=== PATIENT | male | born 1945 | race Caucasian/White ===

== ENCOUNTER 2019-04-16 06:37 | Inpatient (IN) ==
[2019-04-09 12:12] LABS: Appearance,Urine CLEAR; Bilirubin,Urine NEG (NEG); Color,Urine STRAW; Glucose,Urine (UA) NEGATIVE (NEG); Ketones,Urine NEG (NEG); Leukocyte Esterase,Urine NEG /uL (NEG); Nitrate,Urine NEG (NEG); Protein,Urine NEG (NEG); Specific Gravity,Urine 1.006 (1.000-1.035); Urine Blood NEG mg/dL (<0.03); Urobilinogen,Urine NEG (NEG)
[2019-04-09 12:13] LABS: Basophils # (Auto) 0.1 K/mcL (0.0-0.3); Basophils % (Auto) 1.2 % (0.0-2.0); Eosinophils # (Auto) 0.1 K/mcL (0.0-0.7); Eosinophils % (Auto) 1.6 % (0.0-7.0); Granulocytes % (Auto) 66.7 % (38.0-78.0); Hematocrit 42.7 % (41.0-55.0); Hemoglobin 14.4 g/dL (13.5-16.5); Lymphocytes # (Auto) 1.1 K/mcL (1.5-4.8); Lymphocytes % (Auto) 19.7 % (15.5-49.0); Mean Cell Volume 91.1 fL (80.0-100.0); Mean Corpuscular HGB Conc 33.6 g/dL (31.0-36.0); Mean Platelet Volume 7.9 fL (7.4-10.4); Monocytes # (Auto) 0.6 K/mcL (0.1-0.9); Monocytes % (Auto) 10.8 % (1.0-12.0); Platelet Count 276 K/mcL (140-440); RBC 4.69 M/mcL (4.50-5.90); Red Cell Distribution Width 14.6 % (11.5-14.5); WBC 5.8 K/mcL (4.5-11.0)
[2019-04-09 14:54] LABS: Blood Urea Nitrogen 14 mg/dl (8-23); Calcium 9.2 mg/dl (8.6-10.4); Carbon Dioxide 24 mmol/L (22-30); Chloride 102 mmol/L (96-108); Glomerular Filtration Rate 87; Glucose 98 mg/dL (70-105)
[2019-04-09 15:05] LABS: Estimated Average Glucose(eAG) 105 mg/dL; Hemoglobin A1C 5.3 % HGB (4.0-6.0)
[~2019-04-16 06:37] MED LIST: CELECOXIB 200 MG CAPSULE PO SCH; PREGABALIN 75 MG CAPSULE PO SCH; ceFAZolin 2 GM in DEXTROSE 5% IN WATER 50 ML IV SCH; oxyCODONE 10 MG TAB.ER.12H PO SCH
[2019-04-16] MEDS ORDERED: IPRATROPIUM/ALBUTEROL 3 ML AMPUL.NEB NEB PRN ×2 (07:00→11:55)
[2019-04-16] MEDS ORDERED: SCOPOLAMINE 1 PATCH PATCH TOPICAL PRN (07:00)
[2019-04-16] MEDS ORDERED: LIDOCAINE HCL/PF 100 MG/5 ML SYRINGE IV ONE (11:11)
[2019-04-16] MEDS ORDERED: MIDAZOLAM 5 MG/5 ML VIAL IV ONE (11:11)
[2019-04-16] MEDS ORDERED: ONDANSETRON 4 MG/2 ML VIAL IV ONE (11:11)
[2019-04-16] MEDS ORDERED: GLYCOPYRROLATE 0.2 MG/ML VIAL IV ONE (11:11)
[2019-04-16] MEDS ORDERED: PROPOFOL 200 MG/20 ML VIAL IV ONE (11:11)
[2019-04-16] MEDS ORDERED: DEXAMETHASONE 10 MG/ML VIAL IV ONE (11:11)
[2019-04-16] MEDS ORDERED: TRANEXAMIC ACID 1,000 MG/10 ML VIAL IV ONE (11:11)
[2019-04-16] MEDS ORDERED: METOPROLOL TARTRATE 5 MG/5 ML VIAL IV PRN (11:55)
[2019-04-16] MEDS ORDERED: diphenhydrAMINE 50 MG/ML VIAL IV PRN (11:55)
[2019-04-16] MEDS ORDERED: ACETAMINOPHEN 1,000 MG/100 ML BOTTLE IV ONE (11:55)
[2019-04-16] MEDS ORDERED: ONDANSETRON 4 MG/2 ML VIAL IV PRN ×2 (11:55→12:54)
[2019-04-16] MEDS ORDERED: HYDROmorphone 2 MG/ML VIAL IV PRN (11:55)
[2019-04-16] MEDS ORDERED: METHOCARBAMOL 1,000 MG/10 ML VIAL IV PRN (11:55)
[2019-04-16] MEDS ORDERED: fentaNYL 100 MCG/2 ML VIAL IV PRN (11:55)
[2019-04-16] MEDS ORDERED: ePHEDrine 50 MG/ML AMPUL IV PRN (11:55)
[2019-04-16] MEDS ORDERED: ATROPINE SULFATE 0.4 MG/ML VIAL IV PRN (11:55)
[2019-04-16] MEDS ORDERED: NALOXONE HCL 0.4 MG/ML VIAL IV PRN (11:55)
[2019-04-16] MEDS ORDERED: MEPERIDINE 25 MG/ML SYRINGE IV PRN (11:55)
[2019-04-16] MEDS ORDERED: PROMETHAZINE 25 MG/ML VIAL IV PRN (11:55)
[2019-04-16] MEDS ORDERED: FLUMAZENIL 0.1 MG/ML ML IV PRN (11:55)
[2019-04-16] MEDS ORDERED: LACTATED RINGERS 1,000 ML IV SCH (12:00)
[2019-04-16] MEDS ORDERED: HEPARIN 20,000 UNIT/ML VIAL IR ONE (12:45)
[2019-04-16] MEDS ORDERED: TRANEXAMIC ACID 1,000 MG/10 ML VIAL IV SCH (12:54)
[2019-04-16] MEDS ORDERED: FLEETS ADULT ENEMA PR PRN (12:54)
[2019-04-16] MEDS ORDERED: KETOROLAC 15 MG/ML VIAL IV PRN (12:54)
[2019-04-16] MEDS ORDERED: MAGNESIUM HYDROXIDE 30 ML ORAL.SUSP PO PRN (12:54)
[2019-04-16] MEDS ORDERED: POLYETHYLENE GLYCOL 3350 17 GM PACKET PO PRN (12:54)
[2019-04-16] MEDS ORDERED: BENZOCAINE/MENTHOL 1 LOZENGE PO PRN (12:54)
[2019-04-16] MEDS ORDERED: BISACODYL 10 MG SUPP.RECT PR PRN (12:54)
--- NOTE | 2019-04-16 12:54 | Brief Operative Note ---
Date of procedure: 04/16/19 Pre-op diagnosis: Left hip severe OA Post-op diagnosis: same Procedure: Left anterior total hip arthroplasty Grafts/Implants: Yes (Depuy Actis 7 std, +5 36 delta head, 54 cup, neutral altrx liner) Anesthesia: spinal, GLMA Findings: severe arthritis Complications: none Surgeon: Hawk Aceves Field Contractor: Marcus Joiner Estimated blood loss (cc): 200 Specimens Removed/Pathology: none sent Condition: stable Disposition: PACU
--- NOTE | 2019-04-16 13:40 | Operative Note ---
DATE OF OPERATION: 04/16/2019 PREOPERATIVE DIAGNOSIS: Severe left hip osteoarthritis. POSTOPERATIVE DIAGNOSIS: Severe left hip osteoarthritis. PROCEDURE PERFORMED: Left anterior total hip arthroplasty placing a DePuy Actis size 7 standard offset femoral stem; a +5, 36 mm delta ceramic head ball; a 54 [place] cup with a neutral Altrx liner. SURGEON: Hawk Aceves M.D. EXERCISER: Matt Joiner PA-C. The PA's assistance was required for the safe and efficient completion of the entire case. This provider's expertise and technical skill were required throughout the case. The PA assisted with preoperative coordination, intraoperative retraction, wound closure, dressing and splint application, as well as postoperative documentation and care coordination. ANESTHESIA: Spinal plus general. DRAINS: None. SPECIMENS: Femoral head which was discarded. BLOOD LOSS: 200 mL. COMPLICATIONS: None. POSTOPERATIVE CONDITION: Stable. INDICATIONS FOR SURGERY: This is a 74-year-old male who has had longstanding, progressive worsening left hip pain. Radiographs showed severe [id number]-[id number] osteoarthritis with very large osteophytes. He did have a history of a right hip replacement. FINDINGS AT SURGERY: Severe arthritis with large osteophytes. Post implantation showed good component position and relative leg length moravian. PROCEDURE IN DETAIL: The patient had been seen preoperatively and informed consent had been obtained after discussion of risks and benefits of surgery. Risks including, but not limited to, bleeding, possibly requiring transfusion; infection, possibly requiring implant removal and prolonged IV antibiotics; injury to nerves, blood vessels, and other surrounding structures; anesthetic risks; incomplete or no resolution of symptoms; leg length discrepancy; dislocation; fracture; DVT and pulmonary embolus risks; and the possibility of needing further revision surgeries. He understood and wished to proceed. Correct operative site was marked and then patient was taken to the operating room. General anesthesia was induced after spinal was given in preop holding. He was carefully positioned on the [place] table and then the left hip and groin were then carefully prepped and draped in normal sterile fashion and a time-out was performed verifying patient name, operative site, and plan. Ioban was used to cover all skin surfaces and a standard anterior approach incision was made with a scalpel through skin and subcutaneous tissue. Hemostasis was obtained with Bovie cautery. Blunt dissection was taken down onto the tensor fascia and this was undermined circumferentially. Irrisept was irrigated and then a ring retractor placed. Tensor fascia was incised in line with the muscle fibers and then careful blunt dissection was taken medial to the muscle belly. Blunt cobra retractors were placed on the superior and inferior neck. Circumflex vessels were coagulated and cut and vastus fascia split distally. Anterior capsulectomy was performed with capsule releases taken out towards the trochanters and then traction was placed on the leg to sublux it from the joint. Corkscrew was placed in the femoral head. Prior to the traction being placed, however, we did come in with fluoro and take x-rays for our JointPoint. Once this was done, we then placed a corkscrew in the femoral head. Osteotome was used under fluoro to identify our neck cut trajectory and then oscillating tip saw was used to make our neck cut. Due to his severe arthrosis, I went ahead and did a napkin ring resection with a second neck cut and removed the napkin ring. This made removal of the head easier. I then externally rotated the leg 45 degrees and exposed the acetabulum. There were large osteophytes off the acetabulum which we removed with a rongeur partially. We then placed bone wax on the cut neck surface and then removed what remained of labrum. We irrigated with Irrisept and then using a reamer directed medially under fluoroscopy we reamed nearly to the teardrop. We then increased reamer size and angle to a 53 reamer which seemed to have good rim ream. We went ahead and trialed the 53 trial and we got press-fit, so I went ahead and opened a 54 three-hole [place] cup. We irrigated the acetabulum with Irrisept again, and after a minute pulse lavaged with saline. The cup was then impacted with the [id number]. Our JointPoint was checked, and we were at 43 degrees of inclination and 23 degrees of anteversion. I went ahead and removed the [id number]. A curved osteotome was used then to remove osteophytes off the anterior and inferior portion. Inferiorly was a very large osteophyte which we carefully removed. Once completed, a center hole cover was placed and a neutral AltrX liner was carefully aligned and impacted. Traction was released from the leg. It was externally rotated. We released capsule around the medial neck and posteriorly. The leg was then extended and adducted. I used a Bovie to release capsule out towards the greater trochanter and continued along the posterior neck. After we had good exposure of the proximal femur, a box osteotome was used to gain canal entry. An awl was used to identify canal trajectory. Rongeur and rasp were used to lateralize and then began sequentially broaching up to a size 7 stem. I calcar planed minimally. We then trialed a high offset neck with a 1.5 head ball. Hip was reduced. Fluoro was brought in and after x-rays taken, JointPoint was used to assess. It appeared we had lengthened the leg 5 or 6 mm and offset was also increased. The stem size did look slightly undersized, so I went ahead and decided to sink the stem a little bit deeper, and so we redislocated and removed the head and neck trial, and using the [id number] seated this down about another 2 to 3 mm. I then opened a standard offset size 7 stem. The femoral canal was irrigated with Irrisept, and after a minute pulse lavaged copiously with saline. The stem was then impacted until the collar was seated on the medial neck. I then trialed a +5 head ball. Hip was reduced and JointPoint was used again to assess our leg length and offset. At this point, we were 5 mm increased on leg length and we were under offset by 2 mm. However, if we went with a high offset we would have been over offset by 3, so we went ahead and redislocated and we opened a +5 head ball. The stem was carefully cleaned and dried and the head ball was impacted with the [id number]. Hip was reduced without excessive tension. Final fluoro images were taken and saved. We irrigated the joint with Irrisept, and after a minute we pulse lavaged with saline. We then used 0 Vicryl to close tensor fascia with two running stitches. Ring retractor was removed. Irrisept was irrigated again and then 2-0 Monocryl was used for subcutaneous and bart for skin. Xeroform and sterile dressing were applied. The patient was then awakened, extubated, and transferred to recovery in stable condition. ELVIS:[email or web address] Job ID: [id number] Doc ID: [id number] Hawk Aceves MD
[2019-04-16] MEDS: 0.9 % SODIUM CHLORIDE 10 ML SYRINGE IV SCH ×2 (14:15→20:26)
--- NOTE | 2019-04-16 15:07 | XRay Report ---
HISTORY: Postop left hip replacement FINDINGS: There is a well-positioned left total hip prosthesis. There is no fracture or abnormal soft tissue calcification. There is also a well-positioned indwelling right hip prosthesis. Postsurgical changes are present in the lower lumbar spine following laminectomy and fusion. IMPRESSION: Well-positioned left hip prosthesis Interpreted and Authenticated by: Michael Denise 04/16/19
[2019-04-16] MEDS: HYDROCODONE/APAP 7.5/325MG TABLET PO PRN ×2 (15:13→22:15)
[2019-04-16] MEDS: 0.9 % SODIUM CHLORIDE 1,000 ML IV SCH (16:44)
[2019-04-16] MEDS: ceFAZolin 1 GM VIAL IV SCH (19:05)
[2019-04-16] MEDS: DOCUSATE SODIUM 100 MG CAPSULE PO SCH (20:26)
[2019-04-16] MEDS: ASPIRIN 325 MG ENTERIC COATED TABLET PO SCH (20:26)
[2019-04-16] MEDS ORDERED: SENNOSIDES 1 TABLET PO SCH (21:00)
[2019-04-16] MEDS ORDERED: ASPIRIN 325 MG ENTERIC COATED TABLET PO SCH (21:00)
[2019-04-17] MEDS: 0.9 % SODIUM CHLORIDE 1,000 ML IV SCH ×2 (00:56→05:49)
[2019-04-17] MEDS: HYDROCODONE/APAP 7.5/325MG TABLET PO PRN ×3 (04:00→09:44)
[2019-04-17] MEDS: ceFAZolin 1 GM VIAL IV SCH (04:01)
[2019-04-17] MEDS: 0.9 % SODIUM CHLORIDE 10 ML SYRINGE IV SCH (05:19)
--- NOTE | 2019-04-17 07:39 | Discharge Summary ---
Providers - Providers Patient information: Note initiated : 04/17/19 at 7:35 am Service Date, if different from initiated Date: [] Patient: Yohan Ackerman 74 y/o M admitted on 04/16/19 for Left Total Hip Arthroplasty Anterior. Chief Complaint: [] Discharge date: 04/17/19 Hospitalization Hospital Course: Pt was admitted for a L NEAL. Pt underwent the procedure that day of admission. Spent 1 night on the floor for IV pain meds, IV abx, and PT. Pt discharged post- op day 1. Will take ASA for DVT prophylaxis. Will attend out-pt PT. f/u in 2 weeks. Discharge diagnosis: L hip OA Exam - Exam Clean and dry: Yes Weight bearing status: as tolerated Ortho Discharge - NEAL - Patient Instructions Diet: Regular Diet Activity: activity as tolerated Total Hip Protocol: Follow activity instructions as provided by Physical Therapy. Dressing Care: May shower in 2 days - Follow Up Plan Follow Up Appointments: Marcus Joiner PA-C [Physician Inside Sales Administrator] - 05/01/19 9:20 am Disposition: Home, Self-Care Prognosis: Good Rehab Potential: Good Overall status at discharge: patient is progressing back to baseline - Orders For Discharge Prescriptions: HYDROcodone/ACETAMINOPHEN [[place] 10-325 Tablet] 1 - 2 tab PO Q4-6HP PRN #75 tab PRN Reason: Pain Prescription Printed Pending Studies Resuscitation Status Full Code Diet Regular Diet Start SunApr 16 125 Hydrocodone Bitart/Acetaminophen ([place] 7.5/325mg) 0 tab PO Q4HP PRN PRN Reason: PAIN LEVEL 3-6 Last Admin: 04/17/19 04:00 Dose: 2 tab Documented by: Admin: 04/16/19 22:15 Dose: 2 tab Documented by: Admin: 04/16/19 15:13 Dose: 1 tab Documented by: [email or web address] Aspirin (Ecotrin) 325 mg PO BID [facility] Last Admin: 04/16/19 20:26 Dose: 325 mg Documented by: LANG Docusate Sodium (Colace) 100 mg PO BID [facility] Last Admin: 04/16/19 20:26 Dose: 100 mg Documented by: LANG Sodium Chloride (Sodium Chloride 0.9%) 1,000 mls @ 125 mls/hr IV .Q8H [facility] Last Admin: 04/17/19 05:49 Dose: Not Given Documented by: Infusion: 04/17/19 05:00 Dose: 0 mls/hr Documented by: Admin: 04/17/19 00:56 Dose: 125 mls/hr Documented by: Infusion: 04/17/19 00:44 Dose: 125 mls/hr Documented by: Admin: 04/16/19 16:44 Dose: 125 mls/hr Documented by: [facility] Senna (Senokot) 2 tab PO HS [facility] Last Admin: 04/16/19 20:26 Dose: 2 tab Documented by: LANG Sodium Chloride (Saline Flush) 10 ml IV Q8 [facility] Last Admin: 04/17/19 05:19 Dose: 10 ml Documented by: Admin: 04/16/19 20:26 Dose: Not Given Documented by: Admin: 04/16/19 14:15 Dose: Not Given Documented by: [facility] Shift Summary 04/17/19 04:35 Shift Summary by Tasha Johns Patient alert and oriented x4. Slept few hours this shift. IV on RFA will saline lock at the end of shift. Second straight catheter at 1930H 600 mls for 763 mls. Voids since then. Last PVR 137 mls at 0400H. Ambulated in hallway 360 ft using FWW, gait belt and standby assist. Dressing on left hip CDI. Ice pack applied. Also applied ice pack on lower back for pain. CMS on both legs and feet intact. Medicated with [place] 2 tabs x2 with good effect. NO TORADOL PLEASE! Patient allergic to NSAIDS, cause him to have swollen legs in the past. VSS. Initialized on 04/17/19 04:35 - END OF NOTE
[2019-04-17] MEDS ORDERED: MULTIVIT,THER IRON,CA,FA & MIN 1 TABLET PO SCH (09:00)
[2019-04-17] MEDS: ASPIRIN 325 MG ENTERIC COATED TABLET PO SCH (09:23)
[2019-04-17] MEDS: DOCUSATE SODIUM 100 MG CAPSULE PO SCH (09:24)
== END 2019-04-17 11:10 | disposition home or self-care (01) | DRG 470 ==
LOC: MEDSUR 06:37
PROVIDERS: ADMIT Orthopaedic Surgery; ATTEND Orthopaedic Surgery